=== PATIENT | female | born 1955 | race Caucasian/White ===

== ENCOUNTER 2016-11-24 12:20 | Inpatient (IN) | payer OTHER ==
[~2016-11-24] VITALS: Ht 162.6 cm; Wt 75.7 kg
[2016-11-24] VITALS (8 sets, daily range): BP systolic 88–136; BP diastolic 50–68
--- NOTE | ~2016-11-24 | EKG ---
[place], [place] ELECTROCARDIOGRAM REPORT NAME: DAVIDA TURNER UNIT #: [id number] ROOM: 526 DOCTOR: NELL ALEXANDER,DIANE BIRTHDATE: [birth year] DOS: 11/24/2016 TIME: 12:35:45 RATE AND RHYTHM: Sinus bradycardia at 51 beats per minute. [place] interval 143 milliseconds, QRS duration 137 milliseconds, corrected QT interval 429 milliseconds, QRS axis -59. IMPRESSION: 1. Sinus bradycardia. 2. Right bundle branch block. 3. Left axis deviation. 4. This is abnormal EKG. No old EKG to compare with. DIANE CAMEJO MD CM:EKGRPT:ELECTROCARDIOGRAM REPORT [id number] DIANE CAMEJO MD
[~2016-11-24 12:20] MED LIST: ASPIRIN ADULT L81 M1 PO; HYDRALAZINE HYD50 MG PO; LISINOPRIL20 MG PO; METFORMIN500 MG PO; NORVASC10 MG PO; ZOCOR40 MG PO
[2016-11-24 12:53] LABS: BASO % 0.2 % (0.0-1.0); EOS # 0.2 10*3/uL (0.0-0.4); EOS % 1.4 % (1.0-4.0); HEMATOCRIT 35.1 % (37.0-47.0); HEMOGLOBIN 10.8 g/dl (12.0-16.0); LYMPH % 16.5 % (27.0-41.0); MEAN CELL VOLUME 96.7 fl (81.0-99.0); MEAN CORPUSCULAR HGB 29.8 pg (27.0-31.0); MEAN CORPUSCULAR HGB CONC 30.8 g/dl (33.0-37.0); MEAN PLATELET VOLUME 9.8 fl (9.6-12.3); MONO # 0.6 10*3/uL (0.1-1.0); MONO % 4.7 % (3.0-9.0); NEUT # 9.2 10*3/uL (2.3-7.9); NEUT % 76.1 % (47.0-73.0); PLATELET COUNT AUTOMATED 326 10*3/uL (130-400); RED BLOOD COUNT 3.63 10*6/uL (4.10-5.10); RED CELL DISTRI WIDTH 14.3 % (0-14.5); WHITE BLOOD COUNT 12.1 10*3/uL (4.8-10.8)
[2016-11-24 13:11] LABS: ALBUMIN 3.1 gm/dl (3.1-4.5); ALKALINE PHOSPHATASE 82 U/L (45-117); BUN 37 mg/dl (7-24); CHLORIDE 109 mmol/L (98-107); CREATININE 1.51 mg/dL (0.55-1.02); POTASSIUM 3.7 mmol/L (3.5-5.1); SGOT/AST 7 IU/L (3-35); SGPT/ALT 18 U/L (12-78); SODIUM 141 mmol/L (136-145); TOTAL PROTEIN 6.6 gm/dL (6.4-8.2)
[2016-11-24 13:12] LABS: TROPONIN I < 0.015 ng/ml (<0.045)
--- NOTE | 2016-11-24 13:34 | NUR ---
PATIENT IS SLEEPING IN BED, EASILY WOKEN, SKIN IS PINK, WARM, AND DRY, RESPIRATIONS ARE EASY AND NONLABORED, PATIENT IS ALERT AND ORIENTED X3, CALL LIGHT IN REACH OF THE PATIENT, CONTINUING TO MONITOR THE PATIENT. GLENN SANTANA
[2016-11-24] MEDS ORDERED: LIPITOR20 MG PO (14:27)
[2016-11-24] MEDS ORDERED: NEURONTIN300 MG PO (14:28)
[2016-11-24] MEDS ORDERED: METOPROLOL SUCC50 M1 PO (14:28)
[2016-11-24] MEDS ORDERED: NATURE'S BLEND F1 MG PO (14:29)
[2016-11-24] MEDS ORDERED: PLAQUENIL200 MG PO (14:29)
[2016-11-24] MEDS ORDERED: CLARITIN10 MG PO (14:30)
[2016-11-24] MEDS ORDERED: IRON325 M1 PO (14:31)
--- NOTE | 2016-11-24 14:37 | NUR ---
PATIENT TAKEN TO ROOM 526-1 PLACED ON THE MONITOR AND IN THE BED, CARE TRANSFERRED TO KAYLEY LINTON RN. GLENN SANTANA
--- NOTE | 2016-11-24 15:00 | NUR ---
Time: 1500 A 60 year old F admitted to 5E under services of DR. NELL ALEXANDER,DIANE. Pt. arrived via stretcher from ER. Chief complaint: N/V/D & DIZZINESS. HERMAN DAMICO
--- NOTE | 2016-11-24 16:09 | NUR ---
SPOKE WITH DR CAMEJO FOR ADMISSION ORDERS.
--- NOTE | 2016-11-24 17:35 | NUR ---
RESTING COMFORTABLY WITH NO VOICED C/O NAUSEA OR ABD PAIN. IVF PER ORDERS.
--- NOTE | 2016-11-24 18:56 | NUR ---
ATE & TOLERATED DINNER. NO C/O NAUSEA OR ABD PAIN. PT AMBULATORY TO BATHROOM WITH NO C/O DIZZINESS OFFERED. IVF INFUSING PER ORDERS.
[2016-11-24] MEDS ORDERED: COZAAR100 MG PO (20:27)
[2016-11-24] MEDS ORDERED: HYDR25T PO (20:28)
[2016-11-24] MEDS ORDERED: EFFEXOR XR150 M1 PO (20:32)
[2016-11-24] MEDS ORDERED: CELECOXIB200 M1 PO (20:37)
[2016-11-24] MEDS ORDERED: BACLOFEN20 M1 PO (20:38)
--- NOTE | 2016-11-24 20:52 | NUR ---
ALL HOME MEDICATIONS VERIFIED WITH PATIENT. DR. CAMEJO NOTIFIED AND ORDERED TO CONTINUE ALL HOME MEDICATIONS.
[2016-11-25] VITALS: BP 108/55
[2016-11-25 06:36] LABS: BASO % 0.3 % (0.0-1.0); EOS # 0.2 10*3/uL (0.0-0.4); EOS % 2.1 % (1.0-4.0); HEMOGLOBIN 9.3 g/dl (12.0-16.0); LYMPH # 1.2 10*3/uL (1.3-4.4); LYMPH % 16.5 % (27.0-41.0); MEAN CELL VOLUME 97.1 fl (81.0-99.0); MEAN CORPUSCULAR HGB 30.1 pg (27.0-31.0); MEAN PLATELET VOLUME 10.2 fl (9.6-12.3); MONO # 0.2 10*3/uL (0.1-1.0); MONO % 3.2 % (3.0-9.0); NEUT # 5.5 10*3/uL (2.3-7.9); NEUT % 77.2 % (47.0-73.0); RED BLOOD COUNT 3.09 10*6/uL (4.10-5.10); RED CELL DISTRI WIDTH 14.5 % (0-14.5); WHITE BLOOD COUNT 7.1 10*3/uL (4.8-10.8)
[2016-11-25 06:37] LABS: PLATELET COUNT AUTOMATED 218 10*3/uL (130-400)
[2016-11-25 06:46] LABS: ALBUMIN 2.4 gm/dl (3.1-4.5); BUN 28 mg/dl (7-24); CHLORIDE 112 mmol/L (98-107); POTASSIUM 4.1 mmol/L (3.5-5.1); SODIUM 141 mmol/L (136-145)
[2016-11-25 06:49] LABS: ALKALINE PHOSPHATASE 71 U/L (45-117); CREATININE 1.07 mg/dL (0.55-1.02); SGOT/AST 12 IU/L (3-35); SGPT/ALT 12 U/L (12-78); TOTAL PROTEIN 5.1 gm/dL (6.4-8.2)
[2016-11-25 08:00] VITALS: BP 135/65
--- NOTE | 2016-11-25 08:30 | NUR ---
Retail Custodial Associate in to talk to patient. Patient states lives at HOME [address] with HER . There are 0 steps in the home. Physician: DR POLLACK Pharmacy: [facility] [place] Home health services: NONE Patient's level of ADLs: INDEPENDENT Patient has working utilities: YES DME: NONE Follow-up physician's appointment after d/c: PREFERS TO MAKE HER OWN APPT Does patient want to access PORTAL?: Discharge plan HOME. CARLA ORO
[2016-11-25 12:00] VITALS: BP 140/62
[2016-11-25] MEDS ORDERED: CIPRO250 MG PO (15:50)
[2016-11-25] MEDS ORDERED: FLAGYL250 MG PO (15:50)
[2016-11-25 16:00] VITALS: BP 107/53
--- NOTE | 2016-11-25 17:10 | NUR ---
Discharge instructions reviewed with patient/family. Patient receptive and verbalizes understanding. Follow-up care arranged. Written instructions given to patient/family.HEPLOCK REMOVED AND TELEMETRY ACCOUNTED FOR. DARRION GERARD
== END 2016-11-25 17:10 | disposition home or self-care (01) | DRG 917 ==
LOC: ED 12:20 → 5E 13:39 → EDHOLD 13:39 → 5E 13:56
PROVIDERS: Emergency Medicine; ADMIT Internal Medicine
DX: T62.8X1A Toxic effect of other specified noxious substances eaten as food, accidental (unintentional), initial encounter (principal); N17.0 Acute kidney failure with tubular necrosis; E43 Unspecified severe protein-calorie malnutrition; E87.8 Other disorders of electrolyte and fluid balance, not elsewhere classified; E86.0 Dehydration; E11.9 Type 2 diabetes mellitus without complications; I10 Essential (primary) hypertension; D64.9 Anemia, unspecified; A09 Infectious gastroenteritis and colitis, unspecified; F32.9 Major depressive disorder, single episode, unspecified; E78.5 Hyperlipidemia, unspecified; I95.1 Orthostatic hypotension; J30.2 Other seasonal allergic rhinitis; E66.3 Overweight; Z79.82 Long term (current) use of aspirin; Z79.84 Long term (current) use of oral hypoglycemic drugs; Z79.899 Other long term (current) drug therapy; Z80.9 Family history of malignant neoplasm, unspecified; Y92.89 Other specified places as the place of occurrence of the external cause; Z68.28 Body mass index [BMI] 28.0-28.9, adult

== ENCOUNTER → 2016-12-17 | Outpatient (CLI) | payer OTHER ==
[~2016-12-17] MED LIST changes: +BACLOFEN20 M1 PO; +CELECOXIB200 M1 PO; +CIPRO250 MG PO; +CLARITIN10 MG PO; +COZAAR100 MG PO; +EFFEXOR XR150 M1 PO; +FLAGYL250 MG PO; +HYDR25T PO; +IRON325 M1 PO; +LIPITOR20 MG PO; +METOPROLOL SUCC50 M1 PO; +NATURE'S BLEND F1 MG PO; +NEURONTIN300 MG PO; +PLAQUENIL200 MG PO
== END | disposition home or self-care (01) ==
LOC: US 12-16 09:30
DX: K80.20 Calculus of gallbladder without cholecystitis without obstruction (principal); R10.13 Epigastric pain; N28.1 Cyst of kidney, acquired; E27.8 Other specified disorders of adrenal gland

== ENCOUNTER 2017-01-19 09:52 | Emergency (ER) | payer OTHER ==
[~2017-01-19] VITALS: Ht 162.5 cm; Wt 71.7 kg
[2017-01-19] MEDS ORDERED: INDOCIN50 M2 PO (11:05)
== END 2017-01-19 11:49 | disposition home or self-care (01) ==
LOC: ED 09:52
DX: M19.90 Unspecified osteoarthritis, unspecified site (principal); R07.81 Pleurodynia; F32.9 Major depressive disorder, single episode, unspecified; E11.9 Type 2 diabetes mellitus without complications; I10 Essential (primary) hypertension; E78.00 Pure hypercholesterolemia, unspecified; I95.1 Orthostatic hypotension; N17.9 Acute kidney failure, unspecified; Z87.891 Personal history of nicotine dependence; Z79.82 Long term (current) use of aspirin; Z79.84 Long term (current) use of oral hypoglycemic drugs; Z79.899 Other long term (current) drug therapy

== ENCOUNTER 2017-02-23 15:29 | Emergency (ER) | payer OTHER ==
[~2017-02-23] VITALS: Ht 162.5 cm; Wt 72.1 kg
[~2017-02-23 15:29] MED LIST changes: +INDOCIN50 M2 PO
[2017-02-23 16:22] LABS: BASO % 0.3 % (0.0-1.0); EOS # 0.1 10*3/uL (0.0-0.4); EOS % 1.2 % (1.0-4.0); HEMATOCRIT 34.8 % (37.0-47.0); LYMPH % 12.9 % (27.0-41.0); MEAN CELL VOLUME 89.9 fl (81.0-99.0); MEAN CORPUSCULAR HGB 28.4 pg (27.0-31.0); MEAN CORPUSCULAR HGB CONC 31.6 g/dl (33.0-37.0); MEAN PLATELET VOLUME 9.9 fl (9.6-12.3); MONO # 0.2 10*3/uL (0.1-1.0); MONO % 2.3 % (3.0-9.0); NEUT # 6.4 10*3/uL (2.3-7.9); NEUT % 82.8 % (47.0-73.0); PLATELET COUNT AUTOMATED 245 10*3/uL (130-400); RED BLOOD COUNT 3.87 10*6/uL (4.10-5.10); RED CELL DISTRI WIDTH 17.2 % (0-14.5); WHITE BLOOD COUNT 7.7 10*3/uL (4.8-10.8)
[2017-02-23 16:25] LABS: ALBUMIN 3.1 gm/dl (3.1-4.5); CREATININE 1.46 mg/dL (0.55-1.02); TOTAL PROTEIN 7.1 gm/dL (6.4-8.2)
[2017-02-23 17:08] LABS: BILIRUBIN 1+ (NEGATIVE); BLOOD NEGATIVE (NEGATIVE); CLARITY SL CLOUDY (CLEAR); COLOR YELLOW (YELLOW); GLUCOSE NEGATIVE (NEGATIVE); KETONE TRACE (NEGATIVE); LEUKO ESTERASE 1+ (NEGATIVE); NITRITE NEGATIVE (NEGATIVE); SPECIFIC GRAVITY 1.025 (1.005-1.030)
[2017-02-23 17:37] LABS: BACTERIA 1+; EPITHELIAL CELLS TNTC; RBC 0-2 rbc/hpf (0-2)
[2017-02-23] MEDS ORDERED: MACROBID100 M1 PO (17:50)
== END 2017-02-23 18:13 | disposition home or self-care (01) ==
LOC: ED 15:29
PROVIDERS: Nurse Practitioner Family
DX: N30.01 Acute cystitis with hematuria (principal); K80.20 Calculus of gallbladder without cholecystitis without obstruction; E11.9 Type 2 diabetes mellitus without complications; I10 Essential (primary) hypertension; E78.5 Hyperlipidemia, unspecified; Z87.891 Personal history of nicotine dependence; Z79.899 Other long term (current) drug therapy

== ENCOUNTER → 2017-03-19 | Outpatient (CLI) | payer OTHER ==
[~2017-03-19] MED LIST changes: +MACROBID100 M1 PO
== END | disposition home or self-care (01) ==
LOC: RAD 11:42
DX: J40 Bronchitis, not specified as acute or chronic (principal)

== ENCOUNTER → 2018-05-12 | Outpatient (CLI) | payer OTHER | END | disposition home or self-care (01) | LOC: RAD 14:00 | DX: M79.604 Pain in right leg (principal); W19.XXXA Unspecified fall, initial encounter ==

== ENCOUNTER → 2018-08-05 | Outpatient (CLI) | payer OTHER ==
[2018-08-05 08:51] LABS: BASO % 0.5 % (0.0-1.0); EOS # 0.1 10*3/uL (0.0-0.4); EOS % 0.8 % (1.0-4.0); HEMATOCRIT 39.4 % (37.0-47.0); HEMOGLOBIN 12.7 g/dl (12.0-16.0); LYMPH # 1.3 10*3/uL (1.3-4.4); LYMPH % 17.4 % (27.0-41.0); MEAN CELL VOLUME 94.7 fl (81.0-99.0); MEAN CORPUSCULAR HGB 30.5 pg (27.0-31.0); MEAN CORPUSCULAR HGB CONC 32.2 g/dl (33.0-37.0); MEAN PLATELET VOLUME 10.2 fl (9.6-12.3); MONO # 0.3 10*3/uL (0.1-1.0); MONO % 4.4 % (3.0-9.0); NEUT # 5.8 10*3/uL (2.3-7.9); NEUT % 76.6 % (47.0-73.0); PLATELET COUNT AUTOMATED 216 10*3/uL (130-400); RED BLOOD COUNT 4.16 10*6/uL (4.10-5.10); RED CELL DISTRI WIDTH 14.6 % (0-14.5); WHITE BLOOD COUNT 7.5 10*3/uL (4.8-10.8)
[2018-08-05 09:19] LABS: ALBUMIN 3.7 gm/dl (3.1-4.5); CREATININE 1.23 mg/dL (0.55-1.02); POTASSIUM 4.6 mmol/L (3.5-5.1); TOTAL PROTEIN 7.7 gm/dL (6.4-8.2)
== END | disposition home or self-care (01) ==
LOC: LAB 07:57
PROVIDERS: Internal Medicine Nephrology
DX: I12.9 Hypertensive chronic kidney disease with stage 1 through stage 4 chronic kidney disease, or unspecified chronic kidney disease (principal); E11.22 Type 2 diabetes mellitus with diabetic chronic kidney disease; N18.3 Chronic kidney disease, stage 3 (moderate); N28.1 Cyst of kidney, acquired; D63.1 Anemia in chronic kidney disease; N25.81 Secondary hyperparathyroidism of renal origin; E11.69 Type 2 diabetes mellitus with other specified complication; E78.5 Hyperlipidemia, unspecified; I71.4 Abdominal aortic aneurysm, without rupture; R74.0 Nonspecific elevation of levels of transaminase and lactic acid dehydrogenase [LDH]

== ENCOUNTER → 2018-11-26 | Outpatient (CLI) | payer OTHER ==
[2018-11-26 09:25] LABS: BASO % 0.5 % (0.0-1.0); EOS # 0.4 10*3/uL (0.0-0.4); EOS % 4.1 % (1.0-4.0); HEMATOCRIT 39.5 % (37.0-47.0); HEMOGLOBIN 12.8 g/dl (12.0-16.0); LYMPH # 1.8 10*3/uL (1.3-4.4); LYMPH % 20.6 % (27.0-41.0); MEAN CELL VOLUME 93.8 fl (81.0-99.0); MEAN CORPUSCULAR HGB 30.4 pg (27.0-31.0); MEAN CORPUSCULAR HGB CONC 32.4 g/dl (33.0-37.0); MEAN PLATELET VOLUME 10.6 fl (9.6-12.3); MONO # 0.6 10*3/uL (0.1-1.0); NEUT # 5.8 10*3/uL (2.3-7.9); NEUT % 67.4 % (47.0-73.0); PLATELET COUNT AUTOMATED 168 10*3/uL (130-400); RED BLOOD COUNT 4.21 10*6/uL (4.10-5.10); RED CELL DISTRI WIDTH 12.8 % (0-14.5); WHITE BLOOD COUNT 8.5 10*3/uL (4.8-10.8)
[2018-11-26 09:35] LABS: BILIRUBIN NEGATIVE (NEGATIVE); BLOOD NEGATIVE (NEGATIVE); CLARITY CLEAR (CLEAR); COLOR YELLOW (YELLOW); GLUCOSE NEGATIVE (NEGATIVE); KETONE NEGATIVE (NEGATIVE); LEUKO ESTERASE 2+ (NEGATIVE); NITRITE NEGATIVE (NEGATIVE); SPECIFIC GRAVITY 1.015 (1.005-1.030); UROBILINOGEN 0.2 E.U./dl (0.2-1.0)
[2018-11-26 09:49] LABS: EPITHELIAL CELLS 15-20
[2018-11-26 10:07] LABS: ALBUMIN 3.7 gm/dl (3.1-4.5); CREATININE 1.38 mg/dL (0.55-1.02); TOTAL PROTEIN 7.7 gm/dL (6.4-8.2); URIC ACID 7.4 mg/dL (2.6-6.0)
[2018-11-26 10:19] LABS: VITAMIN D, 25-HYDROXY 21.4 ng/mL (30-100)
[2018-11-27 11:08] LABS: CREATININE,URINE 231.3 mg/dL (Not Estab.); MICRO ALBUMIN/CRE RATIO 4.5 (0.0-30.0)
[2018-12-02 08:05] LABS: METANEPHRINE, PLASMA <10 pg/mL (0-62); NORMETANEPHRINE, PLASMA 102 pg/mL (0-145)
== END | disposition home or self-care (01) ==
LOC: LAB 08:48
PROVIDERS: Internal Medicine Nephrology
DX: I12.9 Hypertensive chronic kidney disease with stage 1 through stage 4 chronic kidney disease, or unspecified chronic kidney disease (principal); N18.3 Chronic kidney disease, stage 3 (moderate); N28.1 Cyst of kidney, acquired; D63.1 Anemia in chronic kidney disease; N25.81 Secondary hyperparathyroidism of renal origin; E11.22 Type 2 diabetes mellitus with diabetic chronic kidney disease; I71.4 Abdominal aortic aneurysm, without rupture; E78.5 Hyperlipidemia, unspecified; E11.69 Type 2 diabetes mellitus with other specified complication; R74.0 Nonspecific elevation of levels of transaminase and lactic acid dehydrogenase [LDH]

== ENCOUNTER → 2019-01-12 | Outpatient (CLI) | payer OTHER | END | disposition home or self-care (01) | LOC: RAD 13:33 | DX: M25.571 Pain in right ankle and joints of right foot (principal) ==

== ENCOUNTER → 2019-03-18 | Outpatient (CLI) | payer OTHER ==
[2019-03-18 11:20] LABS: CREATININE 1.54 mg/dL (0.55-1.02)
== END | disposition home or self-care (01) ==
LOC: LAB 10:34
PROVIDERS: Surgery Vascular Surgery
DX: I71.4 Abdominal aortic aneurysm, without rupture (principal)

== ENCOUNTER → 2019-08-16 | Outpatient (CLI) | payer OTHER | END | disposition home or self-care (01) | LOC: RAD 11:41 | DX: M25.511 Pain in right shoulder (principal) ==

== ENCOUNTER → 2019-09-27 | Outpatient (CLI) | payer OTHER ==
[2019-09-27 14:48] LABS: CREATININE 1.65 mg/dL (0.55-1.02); POTASSIUM 4.9 mmol/L (3.5-5.1)
[2019-09-28 11:07] LABS: CREATININE,URINE 169.5 mg/dL (Not Estab.)
== END | disposition home or self-care (01) ==
LOC: LAB 13:30
PROVIDERS: Internal Medicine Endocrinology, Diabetes & Metabolism
DX: E11.9 Type 2 diabetes mellitus without complications (principal); Z79.4 Long term (current) use of insulin

== ENCOUNTER → 2019-12-27 | Outpatient (CLI) | payer OTHER | END | disposition home or self-care (01) | LOC: MAMMO 06:23 | PROVIDERS: ATTEND Family Medicine | DX: Z12.31 Encounter for screening mammogram for malignant neoplasm of breast (principal); N64.89 Other specified disorders of breast ==

== ENCOUNTER → 2020-01-19 | Outpatient (CLI) | payer OTHER | END | disposition home or self-care (01) | LOC: RAD 05:06 | PROVIDERS: ATTEND Internal Medicine | DX: R91.8 Other nonspecific abnormal finding of lung field (principal) ==

== ENCOUNTER → 2020-01-25 | Outpatient (CLI) | payer OTHER ==
[2020-01-25 12:05] LABS: CREATININE 1.58 mg/dL (0.55-1.02); POTASSIUM 4.4 mmol/L (3.5-5.1)
== END | disposition home or self-care (01) ==
LOC: LAB 11:18
PROVIDERS: ATTEND Internal Medicine Endocrinology, Diabetes & Metabolism
DX: E55.9 Vitamin D deficiency, unspecified (principal); E11.9 Type 2 diabetes mellitus without complications; Z79.4 Long term (current) use of insulin

== ENCOUNTER → 2020-03-20 | Outpatient (CLI) | payer OTHER | END | disposition home or self-care (01) | LOC: MRI 00:14 | PROVIDERS: ATTEND Internal Medicine | DX: M25.511 Pain in right shoulder (principal) ==

== ENCOUNTER → 2020-11-07 | Outpatient (CLI) | payer OTHER ==
[2020-11-07 12:01] LABS: ALBUMIN 3.7 gm/dl (3.1-4.5); CREATININE 1.45 mg/dL (0.55-1.02); POTASSIUM 4.2 mmol/L (3.5-5.1); TOTAL PROTEIN 7.5 gm/dL (6.4-8.2)
[2020-11-08 11:07] LABS: CREATININE,URINE 120.2 mg/dL (Not Estab.)
== END | disposition home or self-care (01) ==
LOC: LAB 00:18
PROVIDERS: ATTEND Internal Medicine Endocrinology, Diabetes & Metabolism
DX: E11.9 Type 2 diabetes mellitus without complications (principal); E55.9 Vitamin D deficiency, unspecified

== ENCOUNTER → 2021-01-26 | Outpatient (CLI) | payer OTHER | END | disposition home or self-care (01) | LOC: CT 00:13 | PROVIDERS: ATTEND Internal Medicine | DX: I67.82 Cerebral ischemia (principal); R51.9 Headache, unspecified ==

== ENCOUNTER → 2021-09-10 | Outpatient (CLI) | payer OTHER ==
[2021-09-10 13:47] LABS: CREATININE 1.4 mg/dL (0.55-1.02); POTASSIUM 4.2 mmol/L (3.5-5.1)
== END | disposition home or self-care (01) ==
LOC: LAB 13:12
PROVIDERS: ATTEND Internal Medicine
DX: E83.52 Hypercalcemia (principal)

== ENCOUNTER → 2021-12-18 | Day surgery (SDC) | payer OTHER, MEDICAID ==
[~2021-12-18] VITALS: Ht 162.5 cm; Wt 73.5 kg
[~2021-12-18] MED LIST changes: +CLOPIDOGREL75 MG PO; +JARDIANCE25 MG PO; +TRESIBA100 UNIT/1 SQ; +TRULICITY3 MG/0.5 M SQ
[2021-12-18 09:22] VITALS: BP 139/75
[2021-12-18 10:04] VITALS: BP 135/71
[2021-12-18 10:19] VITALS: BP 143/76
== END | disposition home or self-care (01) ==
LOC: SDC 12-07 10:15
PROVIDERS: ATTEND Specialist
DX: D23.22 Other benign neoplasm of skin of left ear and external auricular canal (principal); L92.8 Other granulomatous disorders of the skin and subcutaneous tissue; E11.40 Type 2 diabetes mellitus with diabetic neuropathy, unspecified; I10 Essential (primary) hypertension; M19.90 Unspecified osteoarthritis, unspecified site; E78.5 Hyperlipidemia, unspecified; Z87.891 Personal history of nicotine dependence; J44.9 Chronic obstructive pulmonary disease, unspecified; Z79.899 Other long term (current) drug therapy

== ENCOUNTER → 2023-01-21 | Outpatient (CLI) | payer MEDICARE, MEDICAID ==
[2023-01-21 13:24] LABS: POTASSIUM 3.7 mmol/L (3.4-5.1)
== END | disposition home or self-care (01) ==
LOC: LAB 01:33 → CT 14:00
PROVIDERS: ATTEND Internal Medicine
DX: J84.10 Pulmonary fibrosis, unspecified (principal); R91.8 Other nonspecific abnormal finding of lung field; R91.1 Solitary pulmonary nodule; J43.9 Emphysema, unspecified; N28.1 Cyst of kidney, acquired; N20.0 Calculus of kidney

== ENCOUNTER → 2023-02-19 | Outpatient (CLI) | payer MEDICARE, MEDICAID | END | disposition home or self-care (01) | LOC: MAMMO 02-17 10:30 | PROVIDERS: ATTEND Internal Medicine | DX: Z12.31 Encounter for screening mammogram for malignant neoplasm of breast (principal) ==

== ENCOUNTER → 2023-03-03 | Outpatient (CLI) | payer MEDICARE, MEDICAID | END | disposition home or self-care (01) | LOC: NM 03:55 | PROVIDERS: ATTEND Internal Medicine | DX: K80.20 Calculus of gallbladder without cholecystitis without obstruction (principal); R12 Heartburn ==

== ENCOUNTER → 2023-04-02 | Outpatient (CLI) | payer MEDICARE, MEDICAID | END | disposition home or self-care (01) | LOC: US 02:37 | PROVIDERS: ATTEND Internal Medicine Nephrology | DX: N18.32 Chronic kidney disease, stage 3b (principal); N28.9 Disorder of kidney and ureter, unspecified; N81.4 Uterovaginal prolapse, unspecified ==

== ENCOUNTER → 2023-08-18 | Outpatient (CLI) | payer MEDICARE ==
[~2023-08-18] MED LIST changes: +CIPRO500 MG PO; -EFFEXOR XR150 M1 PO; +EFFEXOR XR75 M1 PO; +FEOSOL325 MG PO; +LEVOTHYROXINE25 MCG PO; +LIPITOR40 MG PO; +LOSARTAN POTASS50 M1 PO; +METRONIDAZOLE500 M1 PO; +OMEPRAZOLE40 MG PO; +SINCALIDE IV SCH; +SODIUM CHLORIDE 0.9% IV SCH
== END | disposition home or self-care (01) ==
LOC: NM 02:27
PROVIDERS: ATTEND Internal Medicine
DX: R10.11 Right upper quadrant pain (principal); I10 Essential (primary) hypertension; E11.9 Type 2 diabetes mellitus without complications; K80.20 Calculus of gallbladder without cholecystitis without obstruction

== ENCOUNTER → 2024-05-24 | Outpatient (CLI) | payer OTHER ==
[~2024-05-24] MED LIST changes: +BUPivacaine 0.5% 30 ML IV ONE; -SINCALIDE IV SCH; -SODIUM CHLORIDE 0.9% IV SCH; +Vancomycin Hydrochloride 1,000 MG VIAL ONE
== END | disposition home or self-care (01) ==
LOC: MAMMO 05-10 10:00
PROVIDERS: ATTEND Internal Medicine
DX: Z12.31 Encounter for screening mammogram for malignant neoplasm of breast (principal); R92.30 Dense breasts, unspecified

== ENCOUNTER → 2024-08-12 | Outpatient (CLI) | payer OTHER ==
[~2024-08-12] MED LIST changes: -BUPivacaine 0.5% 30 ML IV ONE; -Vancomycin Hydrochloride 1,000 MG VIAL ONE
[2024-08-12 11:17] LABS: BASO % 0.7 % (0.0-1.0); EOS # 0.2 10*3/uL (0.0-0.4); EOS % 3.8 % (1.0-4.0); MEAN CELL VOLUME 89.8 fl (81.0-99.0); MEAN PLATELET VOLUME 10.2 fl (9.6-12.3); MONO # 0.4 10*3/uL (0.1-1.0); MONO % 7.1 % (3.0-9.0); NEUT # 3.7 10*3/uL (2.3-7.9); NEUT % 65.7 % (47.0-73.0); PLATELET COUNT AUTOMATED 164 10*3/uL (130-400); RED BLOOD COUNT 4.23 10*6/uL (4.10-5.10); RED CELL DISTRI WIDTH 15.9 % (0-14.5); WHITE BLOOD COUNT 5.6 10*3/uL (4.8-10.8)
[2024-08-12 11:22] LABS: BILIRUBIN Negative (Negative); BLOOD Negative (Negative); CLARITY Clear (Clear); COLOR Yellow (Yellow); GLUCOSE 3+ (Negative); KETONE Negative (Negative); LEUKO ESTERASE Trace (Negative); NITRITE Negative (Negative); PH 6.5 (4.5-8.0); UROBILINOGEN 0.2 E.U./dl (0.0-1.0)
[2024-08-12 11:58] LABS: RBC 0-2 rbc/hpf (0-2)
[2024-08-12 12:06] LABS: POTASSIUM 4.2 mmol/L (3.4-5.1); TOTAL PROTEIN 7.3 gm/dL (6.0-8.0)
[2024-08-12 12:14] LABS: VITAMIN D, 25-HYDROXY 43.1 ng/mL (30-100)
== END | disposition home or self-care (01) ==
LOC: LAB 10:19
PROVIDERS: ATTEND Internal Medicine
DX: N18.32 Chronic kidney disease, stage 3b (principal); D35.02 Benign neoplasm of left adrenal gland

== ENCOUNTER → 2024-08-16 | Outpatient (CLI) | payer OTHER | END | disposition home or self-care (01) | LOC: CT 07-05 00:48 | PROVIDERS: ATTEND Internal Medicine | DX: Z12.2 Encounter for screening for malignant neoplasm of respiratory organs (principal); I25.10 Atherosclerotic heart disease of native coronary artery without angina pectoris; K80.20 Calculus of gallbladder without cholecystitis without obstruction; N28.1 Cyst of kidney, acquired; R91.8 Other nonspecific abnormal finding of lung field; F17.210 Nicotine dependence, cigarettes, uncomplicated ==

== ENCOUNTER → 2024-08-26 | Outpatient (CLI) | payer OTHER ==
[~2024-08-26] MED LIST changes: +IOHEXOL 300 MG/ML 100 ML VIAL IV ONE
== END | disposition home or self-care (01) ==
LOC: CT 08-23 15:00
PROVIDERS: ATTEND Internal Medicine
DX: R91.8 Other nonspecific abnormal finding of lung field (principal); N28.1 Cyst of kidney, acquired; K80.20 Calculus of gallbladder without cholecystitis without obstruction

== ENCOUNTER 2024-12-07 20:08 | Emergency (ER) | payer OTHER ==
[~2024-12-07] VITALS: Ht 162.5 cm; Wt 74.8 kg
[~2024-12-07 20:08] MED LIST changes: -IOHEXOL 300 MG/ML 100 ML VIAL IV ONE
[2024-12-07] MEDS ORDERED: Ondansetron Hydrochloride 4 MG/2 ML VIAL IV ONE (22:15)
[2024-12-07] MEDS ORDERED: SODIUM CHLORIDE 0.9% 1,000 ML IV ONE (22:15)
[2024-12-07 22:29] LABS: BASO # 0.0 10*3/uL (0.0-0.1); BASO % 0.3 % (0.0-1.0); EOS # 0.3 10*3/uL (0.0-0.4); EOS % 3.6 % (1.0-4.0); MEAN CELL VOLUME 92.8 fl (81.0-99.0); MEAN CORPUSCULAR HGB 28.7 pg (27.0-31.0); MEAN PLATELET VOLUME 10.7 fl (9.6-12.3); MONO # 0.8 10*3/uL (0.1-1.0); MONO % 10.9 % (3.0-9.0); NEUT # 4.9 10*3/uL (2.3-7.9); NEUT % 70.9 % (47.0-73.0); NUCLEATED RED BLOOD CELL 0.0 % (0.0-0.0); NUCLEATED RED BLOOD CELL 0.0 10*3/uL (0.0-0.0); PLATELET COUNT AUTOMATED 143 10*3/uL (130-400); RED CELL DISTRI WIDTH 14.8 % (0-14.5)
[2024-12-07 22:40] LABS: BILIRUBIN Negative (Negative); BLOOD Trace-Lysed (Negative); CLARITY Clear (Clear); COLOR Yellow (Yellow); KETONE Negative (Negative); LEUKO ESTERASE Negative (Negative); NITRITE Negative (Negative); PH 6.0 (4.5-8.0); SPECIFIC GRAVITY 1.025 (1.001-1.030); UROBILINOGEN 0.2 E.U./dl (0.0-1.0)
[2024-12-07 22:45] LABS: BUN 29.0 mg/dl (9-23); SGPT/ALT 22.0 U/L (5-49)
== END 2024-12-08 01:18 | disposition home or self-care (01) ==
LOC: ED 20:08
PROVIDERS: Emergency Medicine
DX: K65.4 Sclerosing mesenteritis (principal); K52.9 Noninfective gastroenteritis and colitis, unspecified; R10.9 Unspecified abdominal pain; R11.10 Vomiting, unspecified; I10 Essential (primary) hypertension; M19.90 Unspecified osteoarthritis, unspecified site; E78.5 Hyperlipidemia, unspecified; E11.40 Type 2 diabetes mellitus with diabetic neuropathy, unspecified; Z87.891 Personal history of nicotine dependence; Z98.890 Other specified postprocedural states; Z87.440 Personal history of urinary (tract) infections; Z20.822 Contact with and (suspected) exposure to COVID-19

== ENCOUNTER → 2024-12-10 | Outpatient (CLI) | payer OTHER | END | disposition home or self-care (01) | LOC: LAB 12:58 | PROVIDERS: ATTEND Internal Medicine | DX: R19.7 Diarrhea, unspecified (principal) ==

== ENCOUNTER → 2024-12-15 | Outpatient (CLI) | payer OTHER ==
[~2024-12-15] MED LIST changes: +IOHEXOL 300 MG/ML 100 ML VIAL IV ONE; +IOHEXOL 300 MG/ML 100 ML VIAL ONE
== END | disposition home or self-care (01) ==
LOC: CT 00:23
PROVIDERS: ATTEND Internal Medicine
DX: K76.0 Fatty (change of) liver, not elsewhere classified (principal); N28.1 Cyst of kidney, acquired; K57.30 Diverticulosis of large intestine without perforation or abscess without bleeding; I71.43 Infrarenal abdominal aortic aneurysm, without rupture; K80.20 Calculus of gallbladder without cholecystitis without obstruction; R93.5 Abnormal findings on diagnostic imaging of other abdominal regions, including retroperitoneum

== ENCOUNTER → 2024-12-23 | Outpatient (CLI) | payer OTHER ==
[~2024-12-23] MED LIST changes: -IOHEXOL 300 MG/ML 100 ML VIAL IV ONE; -IOHEXOL 300 MG/ML 100 ML VIAL ONE
[2024-12-23 15:53] LABS: BASO # 0.1 10*3/uL (0.0-0.1); BASO % 0.9 % (0.0-1.0); EOS # 0.3 10*3/uL (0.0-0.4); EOS % 4.1 % (1.0-4.0); MEAN CELL VOLUME 94.1 fl (81.0-99.0); MEAN CORPUSCULAR HGB 28.6 pg (27.0-31.0); MEAN PLATELET VOLUME 9.4 fl (9.6-12.3); MONO # 0.6 10*3/uL (0.1-1.0); MONO % 8.1 % (3.0-9.0); NEUT # 4.3 10*3/uL (2.3-7.9); NEUT % 61.3 % (47.0-73.0); NUCLEATED RED BLOOD CELL 0.0 % (0.0-0.0); NUCLEATED RED BLOOD CELL 0.0 10*3/uL (0.0-0.0); PLATELET COUNT AUTOMATED 280 10*3/uL (130-400); RED CELL DISTRI WIDTH 14.2 % (0-14.5)
[2024-12-23 17:18] LABS: BUN 16 mg/dl (9-23); SGPT/ALT 8 U/L (5-49)
== END | disposition home or self-care (01) ==
LOC: LAB 15:18
PROVIDERS: ATTEND Internal Medicine
DX: R60.0 Localized edema (principal); R06.02 Shortness of breath